=== PATIENT | male | born 1960 | race Caucasian/White ===

== ENCOUNTER → 2019-08-26 | Outpatient (CLI) | payer BC ==
[2019-08-26 14:55] LABS: Basophils # (A) 0.1 k/uL (0-0.2); Basophils % (A) 1 %; Eosinophils # (A) 0.2 k/uL (0-0.7); Eosinophils % (A) 2 %; HCT 49.3 % (39.0-53.0); HGB 15.6 gm/dL (13.0-17.5); Lymphocytes # (A) 2.1 k/uL (1.0-4.8); Lymphocytes % (A) 23 %; MCHC 31.7 g/dL (31.0-37.0); MCV 97.9 fL (80.0-100.0); Mean Platelet Volume 9.1; Monocytes # (A) 0.6 k/uL (0-1.0); Monocytes % (A) 6 %; Neutrophils # (A) 6.1 k/uL (1.3-7.7); Neutrophils % (A) 66 %; Platelet Count 176 k/uL (150-450); RBC 5.04 m/uL (4.30-5.90); RDW 13.3 % (11.5-15.5); WBC 9.2 k/uL (3.8-10.6)
[2019-08-26 23:47] LABS: African American GFR (CKD) 95.1 (60.0-200.0); Albumin 4.8 g/dL (3.80-4.90); Albumin/Globulin Ratio 2.29 (1.60-3.17); Anion Gap 7.5 mmol/L (4.00-12.00); Calcium 9.8 mg/dL (8.7-10.3); Carbon Dioxide 32.5 mmol/L (21.6-31.8); Globulin 2.1 g/dL (1.6-3.3); Total Bilirubin 0.7 mg/dL (0.3-1.2); Total Protein 6.9 g/dL (6.2-8.2)
[2019-08-27 00:38] LABS: Hepatitis B Surface AB- Quant 3.5 mIU/mL; Hepatitis B Surface Antibody Non-Reactive (Non-Reactive); Hepatitis B Surface Antigen Non-Reactive (Non-Reactive)
== END | disposition home or self-care (01) ==
LOC: LABWHC1 13:56
PROVIDERS: ATTEND Dermatology MOHS-Micrographic Surgery
DX: L40.0 Psoriasis vulgaris (principal)
CPT/HCPCS: 36415; 80053; 85025; 86480; 86706; 87340

== ENCOUNTER → 2021-02-09 | Outpatient (CLI) | payer BC ==
[2021-02-09 14:35] LABS: Basophils # (A) 0.09 X 10*3/uL (0.00-0.10); Basophils % (A) 0.8 %; Eosinophils # (A) 0.39 X 10*3/uL (0.04-0.35); Eosinophils % (A) 3.5 %; HCT 47.6 % (39.6-50.0); HGB 15.7 g/dL (13.0-17.0); Lymphocytes # (A) 3.06 X 10*3/uL (0.90-5.00); Lymphocytes % (A) 27.2 %; MCH 31.7 pg (27.0-32.0); Monocytes # (A) 1.06 X 10*3/uL (0.20-1.00); Monocytes % (A) 9.4 %; Neutrophils # (A) 6.51 X 10*3/uL (1.80-7.70); Neutrophils % (A) 57.7 %; Platelet Count 211 X 10*3/uL (140-440); RBC 4.96 X 10*6/uL (4.40-5.60); RDW 13.2 % (11.5-14.5); WBC 11.27 X 10*3/uL (4.50-10.00)
[2021-02-09 14:57] LABS: African American GFR (CKD) 106.5 (60.0-200.0); Albumin 4.5 g/dL (3.8-4.9); Albumin/Globulin Ratio 1.8 (1.60-3.17); Anion Gap 13.7 mmol/L (10.00-18.00); BUN/Creat Ratio 15.11 Ratio (12.00-20.00); Blood Urea Nitrogen 13.6 mg/dL (9.0-27.0); Calcium 9.7 mg/dL (8.7-10.3); Carbon Dioxide 25.3 mmol/L (20.0-27.5); Globulin 2.5 g/dL (1.6-3.3); Non-African American GFR(CKD) 91.9 (60.0-200.0); Potassium 4.1 mmol/L (3.5-5.5); Total Bilirubin 0.3 mg/dL (0.30-1.20)
== END | disposition home or self-care (01) ==
LOC: LABWHC1 10:45
PROVIDERS: ATTEND Dermatology
DX: L20.89 Other atopic dermatitis (principal); D48.5 Neoplasm of uncertain behavior of skin
CPT/HCPCS: 36415; 80053; 85025

== ENCOUNTER 2021-06-30 07:08 | Day surgery (SDC) | payer BC ==
[2021-06-28 14:05] VITALS: BMI 39.3
[~2021-06-30 07:08] MED LIST: LACTATED RINGERS 1,000 ML IV SCH; LIDOCAINE 1% (10MG/ML) FOR IV START INTRADERMA PRN
[2021-06-30 07:39] VITALS: TEMP 98.3
--- NOTE | 2021-06-30 07:47 | P.GSHP ---
History of Present Illness H&P Date: 06/30/21 CHIEF COMPLAINT: Colon screen HISTORY OF PRESENT ILLNESS: The patient is a 60-year-old male who presents for colon screen. Lower endoscopy was offered for further evaluation and management. PAST MEDICAL HISTORY: Please see list. PAST SURGICAL HISTORY: Please see list. MEDICATIONS: Please see list. ALLERGIES: Please see list. SOCIAL HISTORY: No illicit drug use FAMILY HISTORY: No reports of Crohn disease or ulcerative colitis. REVIEW OF ORGAN SYSTEMS: CONSTITUTIONAL: No reports of fevers or chills. PHYSICAL EXAM: VITAL SIGNS: Stable GENERAL: Well-developed pleasant in no acute distress. HEENT: No scleral icterus. Extraocular movements grossly intact. Moist buccal mucosa. NECK: Supple without lymphadenopathy. CHEST: Unlabored respirations. Equal bilateral excursions. CARDIOVASCULAR: Regular rate and rhythm. Distal 2+ pulses. ABDOMEN: Soft, nontender, nondistended. MUSCULOSKELETAL: No clubbing, cyanosis, or edema. ASSESSMENT: 1. Colon screen. PLAN: 1. 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), hx "blood clot in arm", + COVID test 03/19/2021 History of Any Multi-Drug Resistant Organisms: None Reported Past Surgical History: Orthopedic Surgery Additional Past Surgical History / Comment(s): neha knee arthroscopy, rt shoulder rotator cuff, neck fusion, Smoking Status: Never smoker - Past Family History Father Family Medical History: Cancer Medications and Allergies Home Medications Medication Instructions Recorded Confirmed Type Dupilumab [Dupixent Pen] 0 mg SQ Q14D 06/28/21 06/28/21 History Levothyroxine Sodium [Synthroid] 50 mcg PO DAILY 06/28/21 06/28/21 History amLODIPine [Norvasc] 5 mg PO DAILY 06/28/21 06/28/21 History atenoloL 100 mg PO DAILY 06/28/21 06/28/21 History hydroCHLOROthiazide [Hydrodiuril] 25 mg PO DAILY 06/28/21 06/28/21 History Allergies Allergy/AdvReac Type Severity Reaction Status Date / Time irbesartan [From Avapro] Allergy Unknown Verified 06/30/21 07:35 nifedipine [From Adalat] Allergy Unknown Verified 06/30/21 07:35 Surgical - Exam Vital Signs Temp Pulse Resp BP Pulse Ox 98.3 F 59 L 20 159/75 94 L 06/30/21 07:37 06/30/21 07:37 06/30/21 07:37 06/30/21 07:37 06/30/21 07:37
[2021-06-30] MEDS ORDERED: LIDOCAINE 1% INJ 10MG/ML (20 ML MDV) ONE (08:12)
[2021-06-30] MEDS ORDERED: PROPOFOL 10 MG/ML 20 ML VIAL IV ONE (08:12)
--- NOTE | 2021-06-30 08:34 | P.PCN ---
Date of Procedure: 06/30/21 Description of Procedure: PREOPERATIVE DIAGNOSIS: Personal history of colon polyps Colonoscopy screening POSTOPERATIVE DIAGNOSIS: Personal history of colon polyps Colonoscopy screening Tubular adenoma transverse colon OPERATION: Colonoscopy to the ileocecal valve and appendiceal orifice, cecum Colonoscopy with hot snare polypectomy SURGEON: Kitty Park MD. ANESTHESIA: MAC. INDICATIONS: The patient is an 60-year-old male who presents personal history of colon polyps. Last colonoscopy 12 years. Benefits and risks were described and informed consent was obtained. DESCRIPTION OF PROCEDURE: The patient had undergone Sutab prep. The patient had been brought into the operating room and laid in the left lateral decubitus position. After adequate intravenous sedation, the rectum was examined with 2% lidocaine jelly. The prostate was unremarkable. No external hemorrhoids were encountered. The rectal tone was within normal limits. No lesions were palpated in the rectal vault. An Olympus colonoscope was advanced until the cecum, ileocecal valve and appendiceal orifice were clearly viewed. The prep was good. No sigmoid diverticulosis was encountered. Colonic polyps were found and removed. No evidence of focal colitis was found. Retroflexion of the scope demonstrated grade 2 internal hemorrhoids without active bleeding or inflammation. The colon was desufflated. The patient had tolerated the procedure well. Withdrawal time was over 6 minutes. FINDINGS: Aronchick preparation quality scale 2 (1-5) Internal hemorrhoids, grade 2 No external hemorrhoids No arteriovenous malformations. No sigmoid diverticulosis Removal of 1 polyp: - Snare polypectomy proximal transverse colon, 5 mm tubulovillous adenoma polyp. No focal colitis. RECOMMENDATIONS: Given severity of tubular adenomas, recommend repeat colonoscopy 3 years, 2024 Plan - Discharge Summary New Discharge Prescriptions: Continue amLODIPine [Norvasc] 5 mg PO DAILY Levothyroxine Sodium [Synthroid] 50 mcg PO DAILY hydroCHLOROthiazide [Hydrodiuril] 25 mg PO DAILY atenoloL 100 mg PO DAILY Dupilumab [Dupixent Pen] 0 mg SQ Q14D Discharge Medication List Dupilumab [Dupixent Pen] 0 mg SQ Q14D 06/28/21 [History] Levothyroxine Sodium [Synthroid] 50 mcg PO DAILY 06/28/21 [History] amLODIPine [Norvasc] 5 mg PO DAILY 06/28/21 [History] atenoloL 100 mg PO DAILY 06/28/21 [History] hydroCHLOROthiazide [Hydrodiuril] 25 mg PO DAILY 06/28/21 [History] Follow up Appointment(s)/Referral(s): Kitty Park MD [STAFF PHYSICIAN] - As Needed Patient Instructions/Handouts: Colorectal Polyps (GEN), Weight Management (DC) Activity/Diet/Wound Care/Special Instructions: Repeat colonoscopy in 5 years, 2026 Discharge Disposition: HOME SELF-CARE
[2021-06-30 08:39] VITALS: RESP 16
[2021-06-30 08:50] VITALS: BP 125/87; PULSE 57
== END 2021-06-30 09:24 | disposition home or self-care (01) ==
LOC: ORWHC2ENDO 07:08
PROVIDERS: ATTEND Surgery Plastic and Reconstructive Surgery
DX: Z12.11 Encounter for screening for malignant neoplasm of colon (principal); K63.5 Polyp of colon; K64.1 Second degree hemorrhoids; Z86.010 Personal history of colon polyps; I10 Essential (primary) hypertension; M19.90 Unspecified osteoarthritis, unspecified site; E07.9 Disorder of thyroid, unspecified; G47.33 Obstructive sleep apnea (adult) (pediatric); Z86.16 Personal history of COVID-19; Z98.890 Other specified postprocedural states; Z98.1 Arthrodesis status; Z79.890 Hormone replacement therapy; Z79.899 Other long term (current) drug therapy; Z88.8 Allergy status to other drugs, medicaments and biological substances; Z97.2 Presence of dental prosthetic device (complete) (partial); Z80.9 Family history of malignant neoplasm, unspecified
CPT/HCPCS: 88305; 45385; J2001; J2704; 45380

== ENCOUNTER → 2021-08-02 | Outpatient (CLI) | payer BC ==
[2021-08-02 22:44] LABS: Basophils # (A) 0.07 X 10*3/uL (0.00-0.10); Basophils % (A) 0.7 %; Eosinophils # (A) 0.22 X 10*3/uL (0.04-0.35); Eosinophils % (A) 2.3 %; HCT 46.2 % (39.6-50.0); HGB 15.3 g/dL (13.0-17.0); Immature Grans, Automated 0.5 %; Lymphocytes # (A) 3.02 X 10*3/uL (0.90-5.00); Lymphocytes % (A) 31.5 %; MCH 30.7 pg (27.0-32.0); MCHC 33.1 g/dL (32.0-37.0); MCV 92.8 fL (80.0-97.0); Mean Platelet Volume 11.8 fL (9.5-12.2); Monocytes # (A) 0.76 X 10*3/uL (0.20-1.00); Monocytes % (A) 7.9 %; NRBC Per 100 WBC 0 /100 WBCS (0.0-0.0); Neutrophils # (A) 5.47 X 10*3/uL (1.80-7.70); Neutrophils % (A) 57.1 %; Platelet Count 196 X 10*3/uL (140-440); RBC 4.98 X 10*6/uL (4.40-5.60); RDW 12.9 % (11.5-14.5); WBC 9.59 X 10*3/uL (4.50-10.00)
[2021-08-02 23:46] LABS: African American GFR (CKD) 106.5 (60.0-200.0); Albumin 4.4 g/dL (3.8-4.9); Albumin/Globulin Ratio 1.52 (1.60-3.17); BUN/Creat Ratio 13.56 Ratio (12.00-20.00); Blood Urea Nitrogen 12.2 mg/dL (9.0-27.0); Calcium 9.4 mg/dL (8.7-10.3); Globulin 2.9 g/dL (1.6-3.3); Non-African American GFR(CKD) 91.9 (60.0-200.0); Potassium 3.6 mmol/L (3.5-5.5); Total Bilirubin 0.4 mg/dL (0.30-1.20); Total Protein 7.3 g/dL (6.2-8.2)
== END | disposition home or self-care (01) ==
LOC: LABWHC1 16:03
PROVIDERS: ATTEND Dermatology
DX: L20.89 Other atopic dermatitis (principal); L57.0 Actinic keratosis
CPT/HCPCS: 36415; 80053; 85025

== ENCOUNTER → 2021-10-27 | Outpatient (CLI) | payer BC ==
--- NOTE | 2021-10-27 17:31 | P.SLEEP ---
History of Present Illness DATE: 10/27/2021 CONSULTATION/NEW PATIENT EVALUATION HISTORY OF PRESENT ILLNESS/SLEEP-WAKE EVALUATION: 61 year old gentleman had b een evaluated in the sleep center for obstructive sleep apnea hypopnea syndrome. Patient has history of obstructive sleep apnea for 20 years. Results of previous sleep studies unavailable. Patient continue to use his machine but patient is extremely old and humidifier box is in and bad condition. SLEEP SCHEDULE: Usually sleep schedule on weekdays from 10 PM to 5 AM, during days off from 1 AM until 8 AM. FALLING ASLEEP: Patient has problems with falling asleep, has TV set and bedroom. DURING SLEEP: He usually sleeps on the back position. Positive history of loud snoring. No history of hypnogogical hallucinations, sleep paralysis, or cataplexy. DURING THE DAY/WAKE STATE: Patient usually doesn't take naps. [place] sleepiness scale is to.[]. PAST MEDICAL HISTORY: Hypertension, hypothyroidism, a topical dermatitis, ocular central pemphigoid. PAST SURGICAL HISTORY: Bilateral arthroscopic knee surgery, rotator cuff arthroscopic surgery on the right side. MEDICATIONS: Atenolol 100 mg once a day, levothyroxine 50 g once a day, hydrochlorothiazide 25 mg once a day, amlodipine 5 mg once a day,dupixen. SOCIAL HISTORY: No history smoking, alcohol consumption none at the present time. FAMILY HISTORY: Hypertension, heart problems, stroke, cancer, thyroid problems. REVIEW OF SYSTEMS: Loud snoring and multiple awakenings from sleep without CPAP. No fevers. No double vision. No recent chest pain. No shortness of breath. No abdominal pain. No bleeding episodes. No blood in urine. No seizure episodes. PHYSICAL EXAMINATION: GENERAL: A pleasant patient without any distress. VITAL SIGNS: BP 135/63, HR 70, RR 16, weight 283.4 pounds, height 5 foot 7 inches, body mass index 44.3. HEENT: PERRLA, EOMI. Evaluation of oropharynx showed tongue protrudes midline, low position of soft palate Mallampati 3.Retrognatia 4 mm. NECK: Supple. No JVD. Thyroid is not palpable. 19-3/4 inches in circumference. LUNGS: Clear to percussion and to auscultation. Good air exchange. No wheezing or rhonchi. HEART: S1, S2 regular. No murmurs, gallops or rubs. ABDOMEN: Soft and nontender. Bowel sounds are present. No organomegaly appreciated. EXTREMITIES: No clubbing or cyanosis. STEAMBOAT INSPECTOR: Awake, alert, and oriented x3. Cranial nerves 2 to 7 intact. There is no fasciculation or atrophy noted. No focal deficits observed. ASSESSMENT: 1. Obstructive sleep apnea hypopnea syndrome for about 20 years. Patient continue to use his CPAP equipment which is extremely old and in bed condition. No information about previous sleep testing available. Changes of the weight since previous sleep testing more than 40 pounds up. 2. Obesity body mass index 44.3. 3 hypertension. 4. Hypothyroidism. 5 atopical dermatitis. 6. Ocular central pemphigoid. 7. Status post bilateral knee arthroscopic surgery. 8. Status post arthroscopic rotator cuff surgery on the right side. PLAN: 1. Polysomnography for evaluation of patient's breathing during sleep. 2. CPAP/BiPAP titration if sleep study confirms obstructive sleep apnea- hypopnea syndrome. 3. Preferable position during sleep on the side. 4. No driving if patient feels any sleepiness. Patient is aware of civil and criminal liability for unsafe driving. 5. Sleep hygiene with regular sleep time for at least 7.5-8 hours. 6. Losing weight. Thank you very much for referring this patient for consultation. Sincerely, Yogi Souza MD, PhD, FAASM. 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), hx "blood clot in arm", + COVID test 03/19/2021 History of Any Multi-Drug Resistant Organisms: None Reported Past Surgical History: Orthopedic Surgery Additional Past Surgical History / Comment(s): neha knee arthroscopy, rt shoulder rotator cuff, neck fusion, Smoking Status: Never smoker - Past Family History Father Family Medical History: Cancer Medications and Allergies Home Medications Medication Instructions Recorded Confirmed Type Dupilumab [Dupixent Pen] 0 mg SQ Q14D 06/28/21 06/28/21 History Levothyroxine Sodium [Synthroid] 50 mcg PO DAILY 06/28/21 06/28/21 History amLODIPine [Norvasc] 5 mg PO DAILY 06/28/21 06/28/21 History atenoloL 100 mg PO DAILY 06/28/21 06/28/21 History hydroCHLOROthiazide [Hydrodiuril] 25 mg PO DAILY 06/28/21 06/28/21 History Allergies Allergy/AdvReac Type Severity Reaction Status Date / Time irbesartan [From Avapro] Allergy Unknown Verified 06/30/21 07:35 nifedipine [From Adalat] Allergy Unknown Verified 06/30/21 07:35 Sleep Note - Sleep Note Sleep Note: Temperature: Pulse Rate: Respiratory Rate: Blood Pressure: SpO2: Height: Weight: BMI: Neck Circumference:
== END ==
LOC: SLEEP 16:28
PROVIDERS: ATTEND Internal Medicine
DX: G47.33 Obstructive sleep apnea (adult) (pediatric) (principal); E66.9 Obesity, unspecified; Z68.41 Body mass index [BMI] 40.0-44.9, adult; I10 Essential (primary) hypertension; E03.9 Hypothyroidism, unspecified; L20.9 Atopic dermatitis, unspecified; L12.1 Cicatricial pemphigoid; Z98.890 Other specified postprocedural states; Z79.890 Hormone replacement therapy; Z88.6 Allergy status to analgesic agent; Z88.8 Allergy status to other drugs, medicaments and biological substances
CPT/HCPCS: 99211

== ENCOUNTER → 2022-03-23 | Outpatient (CLI) | payer BC ==
--- NOTE | 2022-03-23 14:53 | P.PN ---
Subjective DATE: [] FOLLOW UP VISIT. Patient with obstructive sleep apnea hypopnea syndrome return to sleep center for follow-up visit. Recently patient had sleep study which documented obstructive sleep apnea hypopnea syndrome. Patient received new PAP therapy equipment and today is first visit after treatment with new CPAP unit was started. I explained results of sleep studies to patient in details. Patient was able to use PAP equipment every night for the whole night. The patient does not have significant problems with the mask, PAP pressure and humidification. [place] sleepiness scale is 3, which is normal. I checked information from PAP unit. PAP unit pressure 9-14, average 12.6 cm H2O. Usage is 100 % for more then 4 hours, average 7.5 hours per night. Leak is slightly high 38.2 L/m . Apnea Hypopnea Index is 1.8, which is normal. MEDICATIONS:1. Levothyroxine 50 g once a day 2. Amlodipine 5 mg once a day 3. Atenolol 100 mg once a day 4. Hydrochlorothiazide 25 mg once a day During physical exam: GENERAL: A pleasant patient without any distress. VITAL SIGNS: BP 152/79, HR 70, RR 18 , weight to 90.2, temperature 97.1, oxygen saturation at room air 93 . HEENT: PERRLA, EOMI.low position of soft palate, Mallapati 3 . NECK: Supple. No JVD. LUNGS: Clear to percussion and to auscultation. Good air exchange. No wheezing or rhonchi. HEART: S1, S2 regular. ABDOMEN: Soft and nontender.[] EXTREMITIES: No clubbing or cyanosis. METAL FABRICATOR: Awake, alert, and oriented x3. No focal deficit. Impressions: 1. Obstructive sleep apnea-hypopnea syndrome. Patient demonstrated great compliance with treatment, benefiting from treatment. 2. Obesity. 3. Hypertension. 4. Hypothyroidism. 5. History of a topical dermatitis. 6. Status post bilateral knee arthroscopic surgery. 7. Status post arthroscopic rotator cuff surgery on the right side. Plan: 1. Continue using PAP equipment every night for the whole night. 2. To change air filter at least 1-2 times per month. 3. PAP unit should stay lower then position of the head. 4. Advised patient to remove all remaining water from humidifier canister daily and make it dry after each usage. Refill canister with fresh distilled water before each usage. 5. Sleep hygiene with regular time in bed for at least 8 hours. 6. Precautions related to driving. No driving if feel any sleepiness. 7. I will maintain prescription for PAP supplies including mask, tube, filters. 8. Follow up visit in 6 months or earlier if patient has any problems. 9. Watching and losing weight. Thank you very much for allowing me to participate in the management of your patient. Yogi Souza MD, PhD, FAASM. Diplomat of [place] [employer], Sleep Medicine Board by [place] [employer] Health And Safety Tech [facility] [place]
== END ==
LOC: SLEEP 13:04
PROVIDERS: ATTEND Internal Medicine
DX: G47.33 Obstructive sleep apnea (adult) (pediatric) (principal); E66.9 Obesity, unspecified; I10 Essential (primary) hypertension; E03.9 Hypothyroidism, unspecified; Z87.2 Personal history of diseases of the skin and subcutaneous tissue; Z96.653 Presence of artificial knee joint, bilateral; Z47.31 Aftercare following explantation of shoulder joint prosthesis; Z79.890 Hormone replacement therapy; Z99.89 Dependence on other enabling machines and devices; Z88.1 Allergy status to other antibiotic agents; Z88.8 Allergy status to other drugs, medicaments and biological substances

== ENCOUNTER → 2022-07-17 | Outpatient (CLI) | payer BC ==
--- NOTE | 2022-07-17 12:13 | MR ---
EXAMINATION TYPE: MR sacroiliac joints wo con DATE OF EXAM: 07/17/2022 COMPARISON: None. HISTORY: Shailesh SI joint pain, More pain Left side Standard multiplanar, multisequence MRI departmental protocol Multiplanar, multisequence images of the pelvis were acquired without contrast. Imaging performed foc using on the bilateral sacroiliac joints. FINDINGS: No suspicious increased T2 signal or edema is seen abutting either sacroiliac joint. Sacroi liac joints appear symmetric in width. There is no bands of diminished signal or subchondral sclerosi s seen. No focal erosions clearly identified. No significant spurring is seen. Slightly suboptimal ev aluation without contrast to assess for synovitis, capsulitis, and enthesitis. Visualized prostate gland is within normal limits. No pelvic fluid collection is seen. IMPRESSION: Suboptimal without IV contrast. No convincing MRI evidence of significant sacroiliitis.
== END | disposition home or self-care (01) ==
LOC: RADMRIMAIN 05:54
PROVIDERS: ATTEND Internal Medicine Rheumatology
DX: M46.1 Sacroiliitis, not elsewhere classified (principal); M53.3 Sacrococcygeal disorders, not elsewhere classified
CPT/HCPCS: 72195

== ENCOUNTER → 2023-02-16 | Outpatient (CLI) | payer BC ==
--- NOTE | 2023-02-16 11:21 | XR ---
EXAMINATION TYPE: XR knee 4V bilateral DATE OF EXAM: 02/16/2023 11:02 AM CLINICAL INDICATION:Male, 62 years old with history of M17.9 OSTEOARTHRITIS OF KNEE; COMPARISON: None. TECHNIQUE: XR knee 4V bilateral; examined in Frontal, lateral and oblique projections. FINDINGS: No evidence of any acute osseous pathology, soft tissue swelling, or joint effusion is no moisés. Tricompartmental osteophyte formation involving the femoral condyles, tibial plateau and patella. Mi ld joint space narrowing bilaterally. Fabella is present bilaterally. IMPRESSION: 1. No acute osseous pathology. 2. Severe tricompartmental osteoarthritic changes.
== END | disposition home or self-care (01) ==
LOC: RADXRMAIN 10:32
PROVIDERS: ATTEND Family Medicine
DX: M17.0 Bilateral primary osteoarthritis of knee (principal)